=== PATIENT | female | born 1985 ===

== ENCOUNTER → 2021-03-27 | Outpatient (CLI) | payer OTHER | END | disposition home or self-care (01) | LOC: PRENATAL 14:30 | PROVIDERS: ATTEND Obstetrics & Gynecology Maternal & Fetal Medicine | DX: O35.0XX1 Maternal care for (suspected) central nervous system malformation in fetus, fetus 1 (principal); O35.3XX1 Maternal care for (suspected) damage to fetus from viral disease in mother, fetus 1; O98.512 Other viral diseases complicating pregnancy, second trimester; O09.512 Supervision of elderly primigravida, second trimester; Z36.89 Encounter for other specified antenatal screening; Z3A.19 19 weeks gestation of pregnancy ==

== ENCOUNTER 2021-07-05 15:13 | Outpatient (CLI) | payer OTHER | END 2021-07-05 16:00 | disposition home or self-care (01) | LOC: PRENATAL 15:13 | PROVIDERS: ATTEND Obstetrics & Gynecology Maternal & Fetal Medicine | DX: O26.843 Uterine size-date discrepancy, third trimester (principal); O36.8131 Decreased fetal movements, third trimester, fetus 1; O09.523 Supervision of elderly multigravida, third trimester; Z36.89 Encounter for other specified antenatal screening; Z3A.33 33 weeks gestation of pregnancy ==

== ENCOUNTER 2021-08-10 04:09 | Inpatient (IN) | payer OTHER ==
[~2021-08-10] VITALS: Ht 167.6 cm; Wt 76.7 kg
[2021-08-10] MEDS ORDERED: CHILDREN'S ASPI81 MG PO (04:57)
[2021-08-10] MEDS ORDERED: FIBER350 GM PO (04:57)
[2021-08-10] MEDS ORDERED: PRENATAL CAPLE1 EAC1 PO (04:58)
[2021-08-10] MEDS ORDERED: VALTREX1000 MG PO (04:59)
[2021-08-12] MEDS ORDERED: FUSION PLUS CA1 EACH PO (11:37)
[2021-08-12] MEDS ORDERED: COLACE100 MG PO (11:37)
== END 2021-08-12 12:06 | disposition home or self-care (01) | DRG 807 ==
LOC: OB/GYN 04:09 → LDR 04:09 → OB/GYN 20:42
PROVIDERS: ADMIT Student in an Organized Health Care Education/Training Program; ATTEND Student in an Organized Health Care Education/Training Program
PROC: 10E0XZZ Delivery of Products of Conception, External Approach (ICD-10-PCS; principal; 2021-08-10)
PROC: 0HQ9XZZ Repair Perineum Skin, External Approach (ICD-10-PCS; 2021-08-10)
PROC: 4A1HXFZ Monitoring of Products of Conception, Cardiac Rhythm, External Approach (ICD-10-PCS; 2021-08-10)
PROC: 3E033VJ Introduction of Other Hormone into Peripheral Vein, Percutaneous Approach (ICD-10-PCS; 2021-08-10)
DX: O70.0 First degree perineal laceration during delivery (principal); Z37.0 Single live birth; Z3A.38 38 weeks gestation of pregnancy